=== PATIENT | male | born 1970 | race Caucasian/White ===

== ENCOUNTER 2017-01-05 14:06 | Emergency (ER) | payer OTHER ==
[2017-01-05 14:39] VITALS: BP 116/84; PULSE 91; TEMP 98.6; BMI 38.0
[2017-01-05] MEDS ORDERED: hydrOXYzine PAMOATE 25 MG CAPSULE (FP) PO ONE ×2 (14:44→14:47)
[2017-01-05] MEDS ORDERED: KETOROLAC TROMETHAMINE 60 MG/2 ML VIAL IM ONE (14:44)
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
[2017-01-05] MEDS ORDERED: KETOROLAC TROMETHAMINE 60 MG/2 ML VIAL ONE (14:47)
== END 2017-01-05 15:55 | disposition home or self-care (01) ==
LOC: FER 14:06
PROC: 3E0233Z Introduction of Anti-inflammatory into Muscle, Percutaneous Approach (ICD-10-PCS; principal; 2017-01-05)
DX: S76.012A Strain of muscle, fascia and tendon of left hip, initial encounter (principal); V43.52XA Car driver injured in collision with other type car in traffic accident, initial encounter; Y99.0 Civilian activity done for income or pay; Y93.89 Activity, other specified; Y92.9 Unspecified place or not applicable
CPT/HCPCS: 73523-TC; 99281-25

== ENCOUNTER 2017-02-26 17:48 | Emergency (ER) | payer OTHER ==
[2017-02-26 17:53] VITALS: BP 131/90; PULSE 92; TEMP 98.4; BMI 35.7
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
[2017-02-26] MEDS ORDERED: KETOROLAC TROMETHAMINE 60 MG/2 ML VIAL IM ONE (18:23)
[2017-02-26] MEDS ORDERED: hydrOXYzine PAMOATE 25 MG CAPSULE (FP) PO ONE (18:23)
[2017-02-26] MEDS ORDERED: KETOROLAC TROMETHAMINE 60 MG/2 ML VIAL ONE (18:26)
--- NOTE | 2017-02-26 19:14 | PDOC ---
*Physical Exam - Vital Signs Last Vital Signs Temp Pulse Resp BP Pulse Ox 98.4 F 92 H 18 131/90 96 02/26/17 17:48 02/26/17 17:48 02/26/17 17:48 02/26/17 17:48 02/26/17 17:48 <rachealkindraLety - Last Filed: 02/26/17 20:26> - Vital Signs Last Vital Signs Temp Pulse Resp BP Pulse Ox 98.4 F 92 H 18 131/90 96 02/26/17 17:48 02/26/17 17:48 02/26/17 17:48 02/26/17 17:48 02/26/17 17:48 <Cristela Marrero I - Last Filed: 02/26/17 20:41> ED Treatment Course - Medications Given in the ED: ED Medications Discontinued Medications Generic Name Dose Route Start Last Admin Trade Name Freq PRN Reason Stop Dose Admin Hydroxyzine Pamoate 25 mg 02/26/17 18:23 02/26/17 18:57 Vistaril - PO 02/26/17 18:24 25 mg ONCE ONE Administration Ketorolac Tromethamine 60 mg 02/26/17 18:23 02/26/17 18:30 Toradol Injection - IM 02/26/17 18:24 60 mg ONCE ONE Administration <Lety Christianson - Last Filed: 02/26/17 20:26> - Medications Given in the ED: ED Medications Discontinued Medications Generic Name Dose Route Start Last Admin Trade Name Freq PRN Reason Stop Dose Admin Hydroxyzine Pamoate 25 mg 02/26/17 18:23 02/26/17 18:57 Vistaril - PO 02/26/17 18:24 25 mg ONCE ONE Administration Ketorolac Tromethamine 60 mg 02/26/17 18:23 02/26/17 18:30 Toradol Injection - IM 02/26/17 18:24 60 mg ONCE ONE Administration <Cristela Marrero I - Last Filed: 02/26/17 20:41> Progress Note - Progress Note Progress Note: This is a 47-year-old male whose care was transferred to dc from Dr. Louise at 1900 hrs. Patient comes in complaining of left hip pain. Patient had x-rays that show a moderately severe amount of degenerative disease and questionable fracture. Patient had a CT of the hip that was negative for any acute fracture and showed again moderately severe degenerative disease. Patient was given Toradol here in the emergency room with improvement in his discomfort A prescription was sent to his pharmacy for Toradol and Flexeril by Dr. Bro Mckeon and he was referred to an orthopedic surgeon for evaluation of possible hip replacement. <Cristela Marrero I - Last Filed: 02/26/17 20:41> *DC/Admit/Observation/Transfer <Lety Christianson - Last Filed: 02/26/17 20:26> - Discharge Dispostion Admit: No <Cristela Marrero I - Last Filed: 02/26/17 20:41> Diagnosis at time of Disposition: Chronic left hip pain - Discharge Dispostion Disposition: HOME Condition at time of disposition: Stable - Prescriptions Prescriptions: Cyclobenzaprine HCl [Flexeril] 10 mg PO TID #15 tablet Ketorolac Tromethamine [Toradol] 10 mg PO Q6H #20 tablet - Referrals Referrals: Marianne Zamora MD [Primary Care Provider] - - Patient Instructions Additional Instructions: For the pain take Flexeril and Toradol as prescribed. Follow-up with the orthopedist that I discussed with you as you most likely will need a hip replacement. Return to the emergency department immediately with ANY new, persistent or worsening symptoms. Continue any medications as previously prescribed by your physician. You should follow up with your primary doctor as soon as possible regarding today's emergency department visit. . Please make sure your doctor reviews the results of your emergency evaluation. Thank you for coming to the Emergency Department today for your care. It was a pleasure to see you today. Please note that your evaluation is INCOMPLETE until you follow-up with your doctor. - Post Discharge Activity
== END 2017-02-26 20:46 | disposition home or self-care (01) ==
LOC: FER 17:48
PROC: 3E0233Z Introduction of Anti-inflammatory into Muscle, Percutaneous Approach (ICD-10-PCS; principal; 2017-02-26)
DX: M25.552 Pain in left hip (principal); G89.29 Other chronic pain
CPT/HCPCS: 73523-TC; 73700-TC-RT; 99283-25

== ENCOUNTER 2021-10-02 10:54 | Emergency (ER) | payer BC, OTHER ==
[2021-10-02 11:09] VITALS: BP 140/75; PULSE 79; RESP 20; TEMP 98.1; BMI 26.6
[2021-10-02] MEDS ORDERED: DIPHTH,PERTUSS(ACELL),TET 0.5 ML DISP.SYRIN IM ONE ×2 (11:19→12:06)
== END 2021-10-02 12:14 | disposition home or self-care (01) ==
LOC: FER 10:54
PROC: 0HQFXZZ Repair Right Hand Skin, External Approach (ICD-10-PCS; principal; 2021-10-02)
PROC: 3E0234Z Introduction of Serum, Toxoid and Vaccine into Muscle, Percutaneous Approach (ICD-10-PCS; 2021-10-02)
DX: S61.216A Laceration without foreign body of right little finger without damage to nail, initial encounter (principal); W23.0XXA Caught, crushed, jammed, or pinched between moving objects, initial encounter
CPT/HCPCS: 90715; 99282-25

== ENCOUNTER 2022-09-24 16:22 | Emergency (ER) | payer OTHER, BC ==
[2022-09-24 16:35] VITALS: BP 129/83; PULSE 65; RESP 16; TEMP 98.9; BMI 26.6
[2022-09-24] MEDS ORDERED: LIDOCAINE HCL 1%, 10 MG/ML (50 mL VIAL) SQ ONE (16:50)
[2022-09-24] MEDS ORDERED: LIDOCAINE HCL 1%, 10 MG/ML (20ML VIAL) ONE (16:57)
[2022-09-24] MEDS ORDERED: CEPHALEXIN MONOHYDRATE 500 MG CAPSULE (UD) PO ONE (16:58)
[2022-09-24] MEDS ORDERED: CEPHALEXIN MONOHYDRATE 500 MG CAPSULE (UD) ONE (17:08)
== END 2022-09-24 17:46 | disposition home or self-care (01) ==
LOC: FER 16:22
DX: L02.212 Cutaneous abscess of back [any part, except buttock and flank] (principal)
CPT/HCPCS: 99283-25